=== PATIENT | female | born 1985 | race Caucasian/White ===

== ENCOUNTER 2017-04-03 08:14 | Emergency (ER) | payer BC ==
[~2017-04-03 08:14] MED LIST: DOCO200C PO; IBUP600 PO; LABE100 PO; SYMB80AE INH; [UNRECOGNIZED DRUG - CODE] PO
[2017-04-03] MEDS ORDERED: ONDANSETRON HCL 4 MG/2 ML VIAL IV PUSH ONE (09:00)
[2017-04-03] MEDS ORDERED: LACTATED RINGER'S 1000 ML INJ 1,000 ML IV SCH (09:00)
[2017-04-03] MEDS ORDERED: PROM25TA10 PO (09:10)
--- NOTE | 2017-04-03 09:11 | PD ---
HPI Chief Complaint Nausea vomiting and diarrhea after of severe panic attack Date Seen: Apr 03, 2017 Time Seen: 09:00 Travel History International Travel<30 Days: No Contact w/Intl Traveler<30Days: No Known Affected Area: No History of Present Illness HPI Patient is a 31-year-old white female at [address] Abel for care, presents complaining of nausea vomiting and diarrhea since midnight. And these problems began after she had a panic attack in the night which she took couple of Xanax. She has a long history of anxiety disorder and panic attacks that she's been on Cymbalta and Xanax in the past for this but since has been off those drugs. This the first time really in 18 weeks that she's had significant panic attack she says that during that time she's had some panic issues that she's been able to deal with that nonmedically. She denies leakage of fluid bleeding per vagina or significant pain Weeks Gestation: 18 Para: 1 : 2 History Past Medical History Narrative Medical Anxiety/panic disorder for which she is taking Cymbalta and Xanax at times Obstetric History Obstetric History One vaginal delivery Social History Alcohol Use: No Tobacco Use: No Substance Abuse: No Allergies-Medications (Allergen,Severity, Reaction): Coded Allergies: No Known Allergies (Unverified , 08/16/15) Home Meds Active Scripts Promethazine (Phenergan) 25 Mg Tablet, 25 MG PO Q6H Y for NAUSEA OR VOMITING for 14 Days, #56 TAB 0 Refills Prov:Cameron Mae II, MD 04/03/17 Labetalol HCl (Trandate 100 mg Tab) 100 Mg Tab, 100 MG PO Q12H for hypertension , #60 TAB 1 Refill Prov:Genesis Panchal MD 08/18/15 Ibuprofen (Motrin 600 Mg Tab) 600 Mg Tab, 600 MG PO Q6H Y for CRAMPING, #30 TAB 1 Refill Prov:Genesis Panchal MD 08/18/15 Reported Medications Alosetron Hcl (Lotronex) 0.5 Mg Tab, 0.5 MG PO, TAB 08/16/15 Budesonide-Formoterol Fumarate (Symbicort) 80 Mcg/4.5 Mcg Aer, 2 PUFF INH ONCE, #1 BOX * SHAKE WELL BEFORE USE * 08/16/15 Docosahexaenoic Acid ( Dha) 200 Mg Cap, 200 MG PO, CAP 08/16/15 Review of Systems General / Constitutional: No: Fever, Weight Gain, Chills, Other Eyes: No: Diploplia, Blurred Vision, Visual changes, Pain, Photophobia HENT: No: Headaches, Vertigo, Lightheadedness Cardiovascular: No: Irregular Rhythm, Chest Pain or Discomfort, Palpitations, Tachycardia, Syncope, Varicosities, Edema, Cyanosis Respiratory: No: Cough, Short of Breath, Other Gastrointestinal: Nausea, Vomiting, Diarrhea Genitourinary: No: Decreased Urinary Output, Oliguria Musculoskeletal: No: Limited ROM, Weakness, Cramping, Edema, Pain Skin: No Rash, No Itching, No Dryness, No Lumps, No Change in Pigmentation, No Change in Nails, No Alopecia, No Lesions Neurologic: No: Weakness, Dizziness, Syncope, Focal Abnormalities, Coordination Problem, Headache, Slurred Speech, Seizures Psychiatric: No: Depression, Suicidal Ideations, Homicidal Ideation Endocrine: No: Heat Intolerance, Cold Intolerance, Polydipsia, Polyuria, Other Physical Exam Narrative GENERAL: Well-nourished, well-developed patient. SKIN: Warm and dry. HEAD: Normocephalic and atraumatic. EYES: No scleral icterus. No injection or drainage. ENT: No nasal drainage noted. Mucous membranes pink. Airway patent. NECK: Supple, trachea midline. No JVD. CARDIOVASCULAR: Regular rate and rhythm without murmurs, gallops, or rubs. RESPIRATORY: Breath sounds equal bilaterally. No accessory muscle use. BREASTS: Bilateral exam showed no masses , no retractions, no nipple discharge. ABDOMEN/GI: Abdomen soft, non-tender, bowel sounds present, no rebound, no guarding Gravid to [-18] weeks size Fundal Height: [18-] GENITOURINARY: Membranes: [intact ] Uterine Contractions: [none-] FHT's: 155 EXTREMITIES: No cyanosis or edema. BACK: Nontender without obvious deformity. No CVA tenderness. NEUROLOGICAL: Awake and alert. Motor and sensory grossly within normal limits. Five out of 5 muscle strength in all muscle groups. Normal speech. Data Data Orders Orders Vital Signs (Adult) .ON ADMISSION (04/03/17 09:00) ^ Labor Status (04/03/17 09:00) Urinalysis - C+S If Indicated (04/03/17 09:00) ^ Non Stress Test (04/03/17 09:00) Lactated Ringer's 1000 Ml Inj (Lr 1000 M (04/03/17 09:00) Ondansetron Inj (Zofran Inj) (04/03/17 09:00) Labs Urinalysis on the dipstick in OB ED is negative MDM Interpretation(s) Patient is 31-year-old white female at 18 weeks with a panic attack in the late evening yesterday began nausea and vomiting and diarrhea after that and had 6 episodes of diarrhea and 7 nausea vomiting episodes and states that she really can't keep anything down even liquids right now Plan Plan a liter of IV fluid for hydration, Zofran 4 mg IV. We'll discharge home with a Phenergan by mouth prescription. She'll follow-up with Dr. Lizandro Bravo of on addressing her medication needs as far as anxiety , she maybe a candidate for Vistaril by mouth as a sedative and to treat some nausea issues. If her panic attacks become more frequent multiple times in a week every week and would restart Cymbalta or similar drug as needed and possibly a benzodiazepine as well Diagnosis Diagnosis: Primary Impression: Anxiety disorder Additional Impression: Nausea and vomiting in prior to 22 weeks gestation Disposition: 01 DISCHARGE HOME Condition: Stable Scripts Promethazine (Phenergan) 25 Mg Tablet 25 MG PO Q6H Y for NAUSEA OR VOMITING for 14 Days, #56 TAB 0 Refills Prov: Cameron Mae II, MD 04/03/17 Cameron Mae II, MD Apr 03, 2017 09:10
[2017-04-03 09:32] LABS: BACTERIA, URINE RARE /hpf; BILIRUBIN, URINE NEG (NEG); BLOOD, URINE NEG (NEG); GLUCOSE,URINE NEG (NEG); KETONE, URINE NEG (NEG); NITRITE,URINE NEG (NEG); PH, URINE 5.5 (5.0-8.5); SQUAMOUS EPITHELIAL CELL URINE 6 /hpf (0-5); URINE COLOR YELLOW (YELLW/STRAW); URINE LEUKOCYTE ESTERASE TRACE (NEG)
== END 2017-04-03 10:41 | disposition home or self-care (01) ==
LOC: HOBED 08:14
DX: O26.892 Other specified pregnancy related conditions, second trimester (principal); F41.0 Panic disorder [episodic paroxysmal anxiety]; O21.9 Vomiting of pregnancy, unspecified; R19.7 Diarrhea, unspecified
CPT/HCPCS: 81001; 96374; 99284; J2405; J7120

== ENCOUNTER 2017-08-21 12:03 | Inpatient (IN) ==
--- NOTE | 2017-08-21 13:03 | MH ---
cc: Geon Abel MD DATE OF ADMISSION: 08/21/2017 REASON FOR ADMISSION: A 37-6/7 week intrauterine with blood pressure 150/90, 2+ protein and significant pedal edema with some nausea and a headache. Her AST was minimally elevated, otherwise, her labs are normal. She was delivered at 38 weeks with her first child for preeclampsia and we have been monitoring her carefully over the last month. Her symptoms are mildly elevated blood pressure and some headaches. She has a medical history significant for significant IBS and an anxiety disorder that we do follow closely. She has had no labor or gestational diabetes, but she does have this hypertension issue. Her cervix is 1-2, anterior, 30% effaced, -2 station and medium. Her Rodriguez score is 5. She does not smoke, drink or use illicit drugs. Her blood type is A positive, hemoglobin is 13.4. Her Pap smear was normal. Her chickenpox is not immune, rubella immune, serology is all negative. Urine drug screen was negative. Group B strep was negative. Glucola was 108. She has no other chronic or systemic illnesses other than some possible rheumatoid arthritis. FAMILY HISTORY: Noncontributory. PHYSICAL: GENERAL: She is an edematous appearing female in mild anxiety. NECK: She has no thyroid enlargement. LUNGS: Clear. HEART: Regular. BREASTS: Unremarkable. PELVIC: Fundus is term. Infant is vertex. She has no CVA tenderness. Cervix is as described. EXTREMITIES: She has 1-2+ edema. Normal reflexes. IMPRESSION: Mild preeclampsia in a near term patient who is now being admitted for a Cytotec oral administration and then AROM. Risks, benefits, expectations and alternatives have been described and she is coming in this afternoon. Geno Abel MD PPC/DL , 12:41 PM , 01:01 PM
[2017-08-21] MEDS ORDERED: Oxytocin 30 Units/500ml Premix 30 UNITS/500 ML BAG IV.SIG ONE (13:24)
[2017-08-21] MEDS ORDERED: Sodium Chlor 0.9% Inj 500 ML IV.SIG ONE (13:24)
[2017-08-21] MEDS ORDERED: fentaNYL Citrate Inj 100 MCG/2 ML Ampul IV.PUSH PRN ×2 (13:24)
[2017-08-21] MEDS ORDERED: Naloxone Inj 0.4 MG/ML Vial IV.PUSH PRN (13:24)
[2017-08-21] MEDS ORDERED: Citric Acid/Sodium Citrate Liq 30 ML UDC PO SCH (13:30)
[2017-08-21] MEDS ORDERED: Sod Chloride 0.9% Inj 1,000 ML IV.CONT SCH (13:30)
[2017-08-21 13:53] LABS: Baso % (Auto) 0.2 % (0.0-2.0); Eos % (Auto) 0.2 % (0.0-4.0); Hematocrit 36.1 % (35.0-46.0); Hemoglobin 12.4 gm/dL (11.6-15.3); Lymph # (Auto) 1.1 th/mm3 (1.0-4.8); Lymph % (Auto) 11.4 % (9.0-44.0); Mean Corpuscular HGB Conc 34.4 % (32.0-36.0); Mean Corpuscular Volume 90.3 fL (80.0-100.0); Mean Platelet Volume 7.6 fL (7.0-11.0); Mono # (Auto) 0.6 th/mm3 (0.0-0.9); Mono % (Auto) 5.9 % (0.0-8.0); Neut # (Auto) 8.2 th/mm3 (1.8-7.7); Neut % (Auto) 82.3 % (16.0-70.0); Platelet Count 166 th/mm3 (150-450); Red Cell Distribution Width 13.8 % (11.6-17.2)
[2017-08-21 13:54] LABS: Amphetamine Urine With Conf Neg (Neg); Benzodiazepine Urine With Conf Neg (Neg); Protein/Creatinine Ratio,Urine 0.54 (0.00-0.14)
[2017-08-21 13:56] LABS: Bacteria,Urine Rare /hpf; Bilirubin,Urine Negative (Negative); Clarity,Urine Hazy (Clear); Color,Urine Yellow (Yellw/Straw); Glucose,Urine (UA) Negative (Negative); Leukocyte Esterase,Urine Negative (Negative); Mucus,Urine Few /lpf (Occasional); Nitrite,Urine Negative (Negative); Specific Gravity,Urine 1.012 (1.002-1.035); Squamous Epithelial Cell,Urine <1 /hpf (0-5)
[2017-08-21 14:19] LABS: Albumin 3.1 g/dL (3.4-5.0)
[2017-08-21 14:20] LABS: Total Protein 6.2 g/dL (6.4-8.2)
--- NOTE | 2017-08-21 16:37 | P.OBLABOR ---
Subjective Interval history: H & P dictated 37 6/7 week with mild gestational hypertension and history of pre eclampsia at 38 weeks with first child. No MCCALL, N, V, Blurred vision. Feels swollen and uncomfortable. GFM. Objective Vital Signs: Vital Signs - 8 hr 08/21/17 12:45 08/21/17 13:15 08/21/17 13:30 Temperature 98.3 F Pulse Rate 78 74 69 Respiratory Rate 17 18 Blood Pressure 137/96 H 136/86 132/91 H 08/21/17 13:45 08/21/17 14:00 08/21/17 14:30 Temperature Pulse Rate 73 74 68 Respiratory Rate 17 Blood Pressure 136/93 H 134/93 H 134/92 H 08/21/17 14:34 08/21/17 15:00 Temperature Pulse Rate 76 Respiratory Rate 17 Blood Pressure 130/84 Objective: Pelvic Exam: 2+/50/-2 anterior and soft proven to 9 pounds pelvis clinically adequate strip category one mild UCs with cytotec AROM clear Weeks Gestation: 38 Patient Started Active Labor: No Medical Induction of Labor: Yes Medical Induction Start Date: 08/21/17 Medical Induction Start Time: 16:34 Artificial Rupture of Membrane: Yes Artificial ROM Date: 08/21/17 Artificial ROM Time: 16:34 Assessment and Plan - Diagnosis (1) Gestational hypertension Code(s): O13.9 - Gestational [-induced] hypertension without significant proteinuria, unspecified trimester Status: Acute - Plan anticipate can ambulate while BPs les than 140/90 epidural prn - Attending Attestation Attest that inpatient services needed
[2017-08-21] MEDS ORDERED: Oxytocin 30 Units/500ml Premix 30 UNITS/500 ML BAG IV.SIG PRN (18:50)
[2017-08-21] MEDS ORDERED: Lidocaine PF 1% Inj 30 ML Vial ONE (19:16)
[2017-08-21] MEDS ORDERED: fentaNYL 2MCG-Bupiv 0.125% Epi 150 ML EPIDURAL ONE (19:16)
[2017-08-21] MEDS ORDERED: fentaNYL Citrate Inj 100 MCG/2 ML Ampul EPIDURAL ONE (21:02)
[2017-08-21] MEDS ORDERED: fentaNYL 2MCG-Bupiv 0.125% Epi 150 ML EPIDURAL PRN (21:02)
[2017-08-21] MEDS ORDERED: Acetaminophen 325 MG Tablet PO ONE (23:30)
[2017-08-21] MEDS ORDERED: Lidocaaine 1.5%/Epinephrine 1:200,000 PF Inj 5 ML Amp ONE ×2 (23:58)
--- NOTE | 2017-08-22 01:55 | P.OBDELI ---
Weeks Gestation: 38 Patient Started Active Labor: Yes Medical Induction of Labor: Yes Artificial Rupture of Membrane: Yes Anesthesia: Epidural Episiotomy: none Vaginal Delivery: Normal Presentation: Occiput anterior Nuchal Cord: None Delayed Cord Clamping (45 sec): Yes Placenta: Spontaneous delivery, Intact Laceration: None Estimated blood loss (mL): 200 Infant: Female Additional Information: Barb 6 13 9 and 9 apgars
[2017-08-22] MEDS ORDERED: Witch Hazel 50%/Glyderin 12.5% 40 Pad Jar RECTAL PRN (01:56)
[2017-08-22] MEDS ORDERED: Zolpidem Tartrate 5 MG Tablet PO PRN (01:56)
[2017-08-22] MEDS ORDERED: Bisacodyl 10 MG Supp RECTAL PRN (01:56)
[2017-08-22] MEDS ORDERED: Naloxone Inj 0.4 MG/ML Vial IV.PUSH PRN (01:56)
[2017-08-22] MEDS ORDERED: Benzocaine 20% Top Spray 60 ML Can TOPICAL PRN (01:56)
[2017-08-22] MEDS ORDERED: Oxytocin 30 Units/500ml Premix 30 UNITS/500 ML BAG IV.CONT SCH (02:00)
[2017-08-22 02:24] LABS: Cord Venous Blood PCO2 58.9; Cord Venous Blood PO2 24.2
[2017-08-22 02:25] LABS: Cord Venous Blood HCO3 25.2
[2017-08-22] MEDS ORDERED: miSOPROStol 200 MCG Tablet ONE (03:34)
[2017-08-22] MEDS ORDERED: Carboprost Tromethamine Inj 250 MCG/ML Ampul IM ONE (03:39)
[2017-08-22] MEDS ORDERED: LORazepam 1 MG Tablet PO PRN (04:08)
--- NOTE | 2017-08-22 04:08 | P.PNOB ---
Subjective Post day: 0 Interval history: While still in delivery had a significant PPH of ~ 500 cc treated with massage, hemobate and bradford placed developed some anxiety and given IV ativan. uterus firm now. Objective Vital Signs/I&O: Vital Signs 08/21/17 12:45 08/21/17 13:15 08/21/17 13:30 Temperature 98.3 F Pulse Rate 78 74 69 Respiratory Rate 17 18 Blood Pressure 137/96 H 136/86 132/91 H 08/21/17 13:45 08/21/17 14:00 08/21/17 14:30 Temperature Pulse Rate 73 74 68 Respiratory Rate 17 Blood Pressure 136/93 H 134/93 H 134/92 H 08/21/17 14:34 08/21/17 15:00 08/21/17 16:30 Temperature Pulse Rate 76 74 Respiratory Rate 17 Blood Pressure 130/84 132/83 08/21/17 16:43 08/21/17 17:00 08/21/17 17:12 Temperature Pulse Rate 72 Respiratory Rate 18 19 Blood Pressure 136/83 08/21/17 18:03 08/21/17 18:15 08/21/17 18:36 Temperature 97.8 F Pulse Rate 78 74 Respiratory Rate 18 18 17 Blood Pressure 138/82 138/89 08/21/17 19:00 08/21/17 19:15 08/21/17 19:45 Temperature Pulse Rate 76 Respiratory Rate 16 16 Blood Pressure 137/89 08/21/17 19:48 08/21/17 19:51 08/21/17 20:08 Temperature Pulse Rate 82 Respiratory Rate 16 16 Blood Pressure 137/92 H 08/21/17 20:42 08/21/17 20:43 08/21/17 20:51 Temperature 97.8 F Pulse Rate 71 79 Respiratory Rate 16 16 Blood Pressure 140/93 H 136/79 08/21/17 21:00 08/21/17 22:09 08/21/17 22:11 Temperature 97.8 F Pulse Rate 68 70 Respiratory Rate 16 Blood Pressure 113/67 129/83 08/21/17 22:17 08/21/17 22:34 08/21/17 23:00 Temperature Pulse Rate 67 65 69 Respiratory Rate 16 16 Blood Pressure 133/90 117/67 118/67 08/21/17 23:30 08/21/17 23:45 08/21/17 23:59 Temperature 97.8 F Pulse Rate 69 Respiratory Rate 16 16 18 Blood Pressure 122/80 08/22/17 00:30 08/22/17 01:00 08/22/17 01:50 Temperature Pulse Rate 79 Respiratory Rate 18 Blood Pressure 132/81 148/101 H 08/22/17 02:01 08/22/17 02:14 08/22/17 02:15 Temperature Pulse Rate 81 81 Respiratory Rate 18 16 Blood Pressure 136/84 138/85 08/22/17 02:31 08/22/17 02:32 08/22/17 02:43 Temperature Pulse Rate 77 Respiratory Rate 16 16 Blood Pressure 133/87 08/22/17 02:45 08/22/17 03:46 Temperature Pulse Rate 81 77 Respiratory Rate Blood Pressure 136/91 H 151/77 H Intake & Output 08/21/17 08/21/17 08/22/17 06:59 18:59 06:59 Intake Total 1000 / 1000 Balance 1000 / 1000 Weight 81.647 kg Intake: IV 1000 / 1000 LR 1000 mL Inj 1,000 ML @ 125 1000 / 1000 mls/hr IV.CONT .Q8H [facility] Rx#: [id number] Result Diagrams: 08/21/17 12:45 Objective Remarks: GENERAL: Well-nourished, well-developed patient. CARDIOVASCULAR: Regular rate and rhythm without murmurs, gallops, or rubs. RESPIRATORY: Breath sounds equal bilaterally. No accessory muscle use. ABDOMEN/GI: Abdomen soft, non-tender. Fundus: Firm, non-tender at umbilicus. GENITOURINARY: Light to moderate bleeding. EXTREMITIES: No cyanosis or edema, non-tender, without signs of DVT. Medications and IVs: Active Medications Acetaminophen (Tylenol) 650 mg PO Q4H PRN PRN Reason: PAIN SCALE 1 TO 2 Al Hydroxide/Mg Hydroxide (Milk Of Magnesia Liq) 30 ml PO Q12H PRN PRN Reason: Mild Constipation Benzocaine (Americaine 20% Top [place]) 1 spray TOPICAL Q4H PRN PRN Reason: For Perineum Discomfort Bisacodyl (Dulcolax Supp) 10 mg RECTAL DAILY PRN PRN Reason: SEVERE CONSITIPATION Citric Acid/Sodium Citrate (Sodium Citrate/Citric Acid Liq) 30 ml PO MANAGER CHANGE [facility] Stop: 08/25/17 13:29 Diphtheria/Pertussis/Tetanus Vacc (Boostrix Vaccine Inj) 0.5 ml IM .ONCE ONE Stop: 08/22/17 16:01 Duloxetine HCl (Cymbalta) 30 mg PO DAILY [facility] Ephedrine Sulfate (Ephedrine/Ns Syringe) 10 mg IV.PUSH UNSCH PRN PRN Reason: SEE LABEL COMMENTS Stop: 08/22/17 21:02 Fentanyl Citrate (Fentanyl Inj) 50 mcg IV.PUSH Q1H PRN PRN Reason: Pain Scale 3 - 5 Fentanyl Citrate (Fentanyl Inj) 100 mcg IV.PUSH Q1H PRN PRN Reason: PAIN SCALE 6 TO 10 Lactated Ringer's (Lr 1000 Ml Inj) 1,000 mls @ 125 mls/hr IV.CONT .Q8H [facility] Last Admin: 08/21/17 21:31 Dose: 125 mls/hr Sodium Chloride (Ns Inj) 1,000 mls @ 100 mls/hr IV.CONT .Q10H [facility] Oxytocin (Pitocin 30 Units/Ns 500 Ml Premix) 30 units in 500 mls @ 2 mls/hr IV.SIG TITRATE PRN; Protocol PRN Reason: For induction of labor Last Admin: 08/21/17 20:00 Dose: 2 milliunit/min, 2 mls/hr Fentanyl/Bupivacaine/Sodium Chlor (Fentanyl 2 Mcg-Bupiv 0.125% Epi) 150 mls @ 11 mls/hr EPIDURAL PRN PRN PRN Reason: for Labor Pain Oxytocin (Pitocin 30 Units/Ns 500 Ml Premix) 30 units in 500 mls @ 100 mls/hr IV.CONT Q5H [facility] Stop: 08/22/17 06:59 Lactulose (Lactulose Liq) 30 ml PO DAILY PRN PRN Reason: SEVERE CONSITIPATION Lidocaine HCl (Xylocaine 1% Inj) 10 ml INFILTRATN PRN PRN PRN Reason: For episiotomy repair Stop: 08/23/17 13:23 Lidocaine HCl (Xylocaine 1% Inj) 0.1 ml INFILTRATN PRN PRN PRN Reason: For IV start Stop: 08/24/17 13:23 Measles/Mumps/Rubella Vaccine Live (M-M-R Ii Vaccine Inj) 0.5 ml SQ .ONCE ONE Stop: 08/22/17 16:01 Mineral Oil (Muri-Lube Oil) 10 ml TOPICAL PRN PRN PRN Reason: PRN perineal massage Naloxone HCl (Narcan Inj) 0.1 mg IV.PUSH Q2M PRN PRN Reason: for opiate reversal Naloxone HCl (Narcan Inj) 0.1 mg IV.PUSH Q2M PRN PRN Reason: for opiate reversal Ondansetron HCl (Zofran Odt) 4 mg PO Q6H PRN PRN Reason: NAUSEA OR VOMITING Senna/Docusate Sodium (Rimma-Colace) 1 tab PO BID [facility] Sennosides (Senokot) 17.2 mg PO Q12H PRN PRN Reason: Moderate Constipation Sodium Chloride (Ns Flush) 2 ml IV.FLUSH BID [facility] Sodium Chloride (Ns Flush) 2 ml IV.FLUSH PRN PRN PRN Reason: FLUSH AFTER USING IV ACCESS Witch Nicole/Glycerin (Tucks Pads) 1 applicatio RECTAL QID PRN PRN Reason: HEMORRHOIDS Zolpidem Tartrate (Ambien) 5 mg PO HS PRN PRN Reason: SLEEP Assessment and Plan - Diagnosis (1) Gestational hypertension Code(s): O13.9 - Gestational [-induced] hypertension without significant proteinuria, unspecified trimester Status: Acute - Plan anticipate can ambulate while BPs les than 140/90 epidural prn
[2017-08-22 12:16] LABS: Baso % (Auto) 0.1 % (0.0-2.0); Eos % (Auto) 0.2 % (0.0-4.0); Hematocrit 37.5 % (35.0-46.0); Hemoglobin 12.6 gm/dL (11.6-15.3); Lymph # (Auto) 1.1 th/mm3 (1.0-4.8); Lymph % (Auto) 7.2 % (9.0-44.0); Mean Corpuscular HGB Conc 33.6 % (32.0-36.0); Mean Corpuscular Hemoglobin 30.3 pg (27.0-34.0); Mean Corpuscular Volume 90.1 fL (80.0-100.0); Mean Platelet Volume 7.4 fL (7.0-11.0); Mono # (Auto) 0.8 th/mm3 (0.0-0.9); Mono % (Auto) 5.2 % (0.0-8.0); Neut # (Auto) 13.6 th/mm3 (1.8-7.7); Neut % (Auto) 87.3 % (16.0-70.0); Platelet Count 170 th/mm3 (150-450); Red Blood Count 4.17 mil/mm3 (4.00-5.30); Red Cell Distribution Width 14.2 % (11.6-17.2); White Blood Count 15.5 th/mm3 (4.0-11.0)
[2017-08-22 13:01] LABS: Eosinophils 1 % (0-4); Lymphocytes 6 % (9-44); Monocytes 2 % (0-8)
[2017-08-22 13:02] LABS: Acanthocytes Occ; Platelet Morphology Normal (Normal)
[2017-08-22] MEDS: Senna/Docusate Sodium 8.6/50 MG Tablet PO SCH ×2 (14:55→20:26)
[2017-08-22] MEDS ORDERED: Diphtheria/Tetanus/Pertussis Vaccine Inj 0.5 ML Syringe IM ONE (16:00)
[2017-08-22] MEDS ORDERED: Measles/Mumps/Rubella Vaccine Inj 0.5 ML Vial SQ ONE (16:00)
[2017-08-22] MEDS: Acetaminophen 325 MG Tablet PO PRN (20:26)
[2017-08-23] MEDS: Acetaminophen 325 MG Tablet PO PRN (05:46)
[2017-08-23] MEDS: Senna/Docusate Sodium 8.6/50 MG Tablet PO SCH (09:28)
[2017-08-23] MEDS ORDERED: Labetalol 100 MG Tablet PO SCH (10:00)
--- NOTE | 2017-08-23 10:19 | P.PNOB ---
Subjective Post day: 1 Interval history: s/p , no complaints, mild headache, improved overnight, no vision changes no RUQ pain no edema Objective Vital Signs/I&O: Vital Signs 08/22/17 12:08 08/22/17 20:15 08/23/17 08:49 Temperature 97.9 F 97.9 F 97.6 F Pulse Rate 69 70 90 Respiratory Rate 18 18 20 Blood Pressure 128/77 133/87 143/95 H 08/23/17 09:26 Temperature Pulse Rate 84 Respiratory Rate Blood Pressure 141/84 H Result Diagrams: 08/22/17 11:02 Objective Remarks: GENERAL: Well-nourished, well-developed patient. CARDIOVASCULAR: Regular rate and rhythm without murmurs, gallops, or rubs. RESPIRATORY: Breath sounds equal bilaterally. No accessory muscle use. ABDOMEN/GI: Abdomen soft, non-tender. Fundus: Firm, non-tender at umbilicus. GENITOURINARY: Light to moderate bleeding. EXTREMITIES: No cyanosis or edema, non-tender, without signs of DVT. Medications and IVs: Active Medications Acetaminophen (Tylenol) 650 mg PO Q4H PRN PRN Reason: PAIN SCALE 1 TO 2 Last Admin: 08/23/17 05:46 Dose: 650 mg Al Hydroxide/Mg Hydroxide (Milk Of Magnesia Liq) 30 ml PO Q12H PRN PRN Reason: Mild Constipation Benzocaine (Americaine 20% Top [place]) 1 spray TOPICAL Q4H PRN PRN Reason: For Perineum Discomfort Bisacodyl (Dulcolax Supp) 10 mg RECTAL DAILY PRN PRN Reason: SEVERE CONSITIPATION Citric Acid/Sodium Citrate (Sodium Citrate/Citric Acid Liq) 30 ml PO SERVICE DELIVERY MANAGER [facility] Stop: 08/25/17 13:29 Duloxetine HCl (Cymbalta) 30 mg PO DAILY [facility] Last Admin: 08/23/17 09:27 Dose: 30 mg Fentanyl Citrate (Fentanyl Inj) 50 mcg IV.PUSH Q1H PRN PRN Reason: Pain Scale 3 - 5 Fentanyl Citrate (Fentanyl Inj) 100 mcg IV.PUSH Q1H PRN PRN Reason: PAIN SCALE 6 TO 10 Lactated Ringer's (Lr 1000 Ml Inj) 1,000 mls @ 125 mls/hr IV.CONT .Q8H [facility] Last Admin: 08/21/17 21:31 Dose: 125 mls/hr Sodium Chloride (Ns Inj) 1,000 mls @ 100 mls/hr IV.CONT .Q10H [facility] Oxytocin (Pitocin 30 Units/Ns 500 Ml Premix) 30 units in 500 mls @ 2 mls/hr IV.SIG TITRATE PRN; Protocol PRN Reason: For induction of labor Last Admin: 08/21/17 20:00 Dose: 2 milliunit/min, 2 mls/hr Fentanyl/Bupivacaine/Sodium Chlor (Fentanyl 2 Mcg-Bupiv 0.125% Epi) 150 mls @ 11 mls/hr EPIDURAL PRN PRN PRN Reason: for Labor Pain Labetalol HCl (Trandate) 100 mg PO BID [facility] Lactulose (Lactulose Liq) 30 ml PO DAILY PRN PRN Reason: SEVERE CONSITIPATION Lidocaine HCl (Xylocaine 1% Inj) 10 ml INFILTRATN PRN PRN PRN Reason: For episiotomy repair Stop: 08/23/17 13:23 Lidocaine HCl (Xylocaine 1% Inj) 0.1 ml INFILTRATN PRN PRN PRN Reason: For IV start Stop: 08/24/17 13:23 Lorazepam (Ativan) 1 mg PO Q6H PRN PRN Reason: ANXIETY Last Admin: 08/22/17 20:27 Dose: 1 mg Mineral Oil (Muri-Lube Oil) 10 ml TOPICAL PRN PRN PRN Reason: PRN perineal massage Naloxone HCl (Narcan Inj) 0.1 mg IV.PUSH Q2M PRN PRN Reason: for opiate reversal Naloxone HCl (Narcan Inj) 0.1 mg IV.PUSH Q2M PRN PRN Reason: for opiate reversal Ondansetron HCl (Zofran Odt) 4 mg PO Q6H PRN PRN Reason: NAUSEA OR VOMITING Senna/Docusate Sodium (Rimma-Colace) 1 tab PO BID [facility] Last Admin: 08/23/17 09:28 Dose: Not Given Sennosides (Senokot) 17.2 mg PO Q12H PRN PRN Reason: Moderate Constipation Sodium Chloride (Ns Flush) 2 ml IV.FLUSH BID [facility] Sodium Chloride (Ns Flush) 2 ml IV.FLUSH PRN PRN PRN Reason: FLUSH AFTER USING IV ACCESS Witch Nicole/Glycerin (Tucks Pads) 1 applicatio RECTAL QID PRN PRN Reason: HEMORRHOIDS Zolpidem Tartrate (Ambien) 5 mg PO HS PRN PRN Reason: SLEEP Assessment and Plan - Diagnosis (1) (spontaneous vaginal delivery) Code(s): O80 - Encounter for full-term uncomplicated delivery Status: Acute (2) Gestational hypertension Code(s): O13.9 - Gestational [-induced] hypertension without significant proteinuria, unspecified trimester Status: Acute - Plan PPD#1, GHTN; mild range BPs but h/o PreEclampsia & headache overnight; start labetalol 100mg bid; did well on this med with last ; plan office recheck in 3-5d, d/c to home later today as long as no new symptoms; pt aware of precautions Discharge Planning: today
== END 2017-08-23 13:31 | disposition home or self-care (01) ==
LOC: H2E 12:03 → H1EA 08-22 08:03
PROVIDERS: ADMIT Obstetrics & Gynecology; ATTEND Obstetrics & Gynecology